=== PATIENT | male | born 1945 | race Caucasian/White ===

== ENCOUNTER 2019-06-20 07:32 | Day surgery (SDC) | payer MEDICARE ==
[2019-06-06 12:05] LABS: BASOPHILS % (AUTO) 0.5 % (0-1); EOSINOPHILS # (AUTO) 0.1 X10'3 (0-0.9); EOSINOPHILS % (AUTO) 1.1 % (0-6); LYMPHOCYTES % (AUTO) 30.9 % (21-51); MEAN CORPUSCULAR HEMOGLOBIN 32.3 PG (27.0-31.0); MEAN CORPUSCULAR HGB CONC 34.1 g/dL (33.0-36.5); MEAN CORPUSCULAR VOLUME 94.8 FL (78-98); MONOCYTES # (AUTO) 0.7 X10'3 (0-0.9); MONOCYTES % (AUTO) 10.8 % (2-12); NEUTROPHILS # (AUTO) 3.6 X10'3 (1.8-7.7); NEUTROPHILS % (AUTO) 56.7 % (42-75); PRE OP HEMATOCRIT 41.8 % (42.0-52.0); PRE OP HEMOGLOBIN 14.2 g/dL (14.0-17.9); PRE OP PLATELET COUNT 193 X10'3 (140-440); RED BLOOD COUNT 4.41 X10'6 (4.70-6.10); RED CELL DISTRIBUTION WIDTH 13.1 % (11.5-14.5)
[2019-06-06 12:18] LABS: BLOOD UREA NITROGEN 12 MG/DL (7-18); BUN/CREATININE RATIO 11.9 (5.4-32.0); CHLORIDE 105 MMOL/L (99-107); CREATININE 1.01 MG/DL (0.60-1.10); PRE OP ANION GAP 8 (8-16); PRE OP GLUCOSE 103 MG/DL (70-104); PRE OP POTASSIUM 3.6 MMOL/L (3.4-5.1); PRE OP SODIUM 139 MMOL/L (135-145); TOTAL CARBON DIOXIDE 25.8 MMOL/L (24-32)
[2019-06-06 12:19] LABS: ALBUMIN 3.6 G/DL (3.4-5.0); ALKALINE PHOSPHATASE 82 IU/L (46-116); CALCIUM 8.7 MG/DL (8.5-10.1); PRE OP ALT 60 U/L (30-65); PRE OP AST 48 U/L (10-37); PRE OP BILIRUB, TOTAL 0.3 MG/DL (0.0-1.0); TOTAL PROTEIN 7.2 G/DL (6.4-8.2); eGFR 72 ML/MIN
[~2019-06-20] VITALS: Ht 172.7 cm; Wt 74.8 kg
[~2019-06-20 07:32] MED LIST: BUPIVAcaine/PF 2.5mg/ml (0.25%) 10ml vial ONE; CLON0.5T4 PO; HYDR25TA4 PO; LEVO88TA7 PO; LISI40TA4 PO; PANT-47 PO; SIMV-45 PO; cefazolin/dext.iso 2gm/100ml 100 ML IV ONE; famotidine 10mg tablet PO ONE; ringers solution, lacted 1,000 ML IV SCH
[2019-06-20 08:00] VITALS: BP 139/92
[2019-06-20] MEDS ORDERED: LIDOcaine 0.5% (5mg/ml) 50ml vial ONE (10:33)
[2019-06-20] MEDS ORDERED: fentaNYL/PF 50MCG/1 ML 2ML syringe ONE ×2 (10:34→10:53)
[2019-06-20] MEDS ORDERED: midazolam 2 mg/2 ml injection ONE ×2 (10:34→11:04)
[2019-06-20] MEDS ORDERED: LIDOcaine 1%/PF 5ML 10 MG/ML VIAL ONE (10:44)
[2019-06-20] MEDS ORDERED: propofol inj 20 ML IV ONE (10:44)
[2019-06-20] MEDS ORDERED: ketamine 50mg/5ml syringe ONE (10:51)
[2019-06-20 11:22] VITALS: BP 159/91
--- NOTE | 2019-06-20 11:22 | NUR ---
Received from OR via [facility] , accompanied by Anesthesiologist STARLA and report given by Anesthesiolgist. PATIENT WITH 20G PIV IN RIGHT HAND RUNNING LR AT 100. DENIES PAIN. LEFT WRIST DRESSING IS CDI. THOR, + CAP REFILL AND SENSATION. DENIES PAIN. Addendum: 06/20/19 at 1134 by Jonathan Barrow RN, RN Amended: Links added.
[2019-06-20 11:32] VITALS: BP 138/91
[2019-06-20 11:42] VITALS: BP 146/79
[2019-06-20 11:52] VITALS: BP 138/78
--- NOTE | 2019-06-20 12:02 | NUR ---
ALL DC CRITERIA HAS BEEN MET. IV TAKEN OUT WITHOUT COMPLICATIONS. ALL INSTRUCTIONS COVERED AND ALL QUESTIONS ANSWERED. DRESSINGS CDI. OUT VIA WHEELCHAIR TO PERSONAL VEHICLE WHERE PATIENT WAS SECURED IN AND DRIVEN HOME BY FAMILY. MD BALDERAS PRESENT TO DISCUSS HOW SURGERY WENT WITH AND PATIENT. Addendum: 06/20/19 at 1205 by Jonathan Barrow RN, RN Amended: Links added.
== END 2019-06-20 12:02 | disposition home or self-care (01) ==
LOC: PAS 07:32
PROVIDERS: ATTEND Orthopaedic Surgery Hand Surgery
DX: S63.592A Other specified sprain of left wrist, initial encounter (principal); M24.832 Other specific joint derangements of left wrist, not elsewhere classified; M19.032 Primary osteoarthritis, left wrist; I10 Essential (primary) hypertension; E03.9 Hypothyroidism, unspecified; Z79.890 Hormone replacement therapy; Z79.899 Other long term (current) drug therapy; Z90.49 Acquired absence of other specified parts of digestive tract; Z98.890 Other specified postprocedural states; X58.XXXA Exposure to other specified factors, initial encounter; Y93.89 Activity, other specified; Y92.89 Other specified places as the place of occurrence of the external cause; Y99.8 Other external cause status
CPT/HCPCS: 29846; 36415; 80053; 82948; 85025; 93005; J2001; J2250; J2704; J3010; J3490; J7120; A4215; A4615; A6449; A7000

== ENCOUNTER 2020-11-12 07:26 | Inpatient (IN) | payer MEDICARE ==
[2020-11-08 12:00] LABS: CLARITY,URINE CLOUDY (Clear); COLOR,URINE YELLOW (Yellow); GLUCOSE, URINE NEGATIVE (Neg); KETONES,URINE NEGATIVE (Neg); LEUKOCYTE ESTERASE ,URINE MODERATE (Neg); NITRITES, URINE NEGATIVE (Neg); OCCULT BLOOD,URINE MODERATE (Neg); PROTEIN,URINE TRACE mg/dl (Neg); UROBILINOGEN,URINE 0.2 E.U/dL (0.2-1.0)
[2020-11-08 12:03] LABS: BASOPHILS % (AUTO) 0.3 % (0-1); EOSINOPHILS # (AUTO) 0.1 X10'3 (0-0.9); EOSINOPHILS % (AUTO) 0.7 % (0-6); LYMPHOCYTES # (AUTO) 1.4 X10'3 (1.1-4.8); LYMPHOCYTES % (AUTO) 18.8 % (21-51); MEAN CORPUSCULAR HEMOGLOBIN 32.2 PG (27.0-31.0); MEAN CORPUSCULAR HGB CONC 33.8 g/dL (33.0-36.5); MEAN CORPUSCULAR VOLUME 95.4 FL (78-98); MONOCYTES # (AUTO) 0.7 X10'3 (0-0.9); MONOCYTES % (AUTO) 8.8 % (2-12); NEUTROPHILS # (AUTO) 5.4 X10'3 (1.8-7.7); NEUTROPHILS % (AUTO) 71.4 % (42-75); PRE OP HEMATOCRIT 42.8 % (42.0-52.0); PRE OP HEMOGLOBIN 14.5 g/dL (14.0-17.9); PRE OP PLATELET COUNT 217 X10'3 (140-440); RED BLOOD COUNT 4.49 X10'6 (4.70-6.10); RED CELL DISTRIBUTION WIDTH 12.8 % (11.5-14.5)
[2020-11-08 12:04] LABS: UA COLLECTION TYPE CLN CATCH MIDSTREAM
[2020-11-08 12:09] LABS: WBC,URINE TNTC /HPF (0-4)
[2020-11-08 12:10] LABS: BACTERIA,URINE 1+ /HPF (Neg); SQUAMOUS EPITHELIAL CELL,UR FEW /LPF (FEW)
[2020-11-08 12:17] LABS: ALBUMIN 3.5 G/DL (3.4-5.0); ALBUMIN/GLOBULIN RATIO 0.9 (1.1-1.5); ALKALINE PHOSPHATASE 86 IU/L (46-116); BLOOD UREA NITROGEN 14 MG/DL (7-18); BUN/CREATININE RATIO 15.7 (5.4-32.0); CALCIUM 8.6 MG/DL (8.5-10.1); CHLORIDE 94 MMOL/L (99-107); CREATININE 0.89 MG/DL (0.60-1.10); PRE OP ALT 25 U/L (30-65); PRE OP ANION GAP 12 (8-16); PRE OP AST 39 U/L (10-37); PRE OP BILIRUB, TOTAL 0.6 MG/DL (0.0-1.0); PRE OP GLUCOSE 96 MG/DL (70-104); PRE OP POTASSIUM 3.7 MMOL/L (3.4-5.1); PRE OP SODIUM 131 MMOL/L (135-145); TOTAL CARBON DIOXIDE 24.8 MMOL/L (24-32); TOTAL PROTEIN 7.3 G/DL (6.4-8.2); eGFR 84 ML/MIN
[2020-11-12] VITALS (18 sets, daily range): BP systolic 112–130; BP diastolic 60–79
[~2020-11-12] VITALS: Ht 170.2 cm; Wt 78.0 kg
[~2020-11-12 07:26] MED LIST changes: -BUPIVAcaine/PF 2.5mg/ml (0.25%) 10ml vial ONE; +CHOL5000 PO; +LISI40TA13 PO; -LISI40TA4 PO; +OXYB10TA30 PO; +ceFAZolin 2gm in dextrose, iso 50 ML IV ONE; -cefazolin/dext.iso 2gm/100ml 100 ML IV ONE; -famotidine 10mg tablet PO ONE; +famotidine 20mg tablet PO ONE; -ringers solution, lacted 1,000 ML IV SCH
[2020-11-12] MEDS: ringers solution, lacted 1,000 ML IV SCH ×2 (08:28→20:37)
[2020-11-12] MEDS ORDERED: fentaNYL /PF 50mcg/ml 5ml ampule ONE (14:52)
[2020-11-12] MEDS ORDERED: midazolam 1 mg/ML 2ml injection ONE (14:52)
[2020-11-12] MEDS ORDERED: BUPIVAcaine/PF 2.5 mg/ml (0.25%) 30ml vial ONE (15:18)
[2020-11-12] MEDS ORDERED: bacitracin 15gm ointment TP ONE (15:18)
[2020-11-12] MEDS ORDERED: acetaminophen 1000 MG/100ml vial IV ONE (15:29)
[2020-11-12] MEDS ORDERED: sevoflurane 250ml liquid IH ONE (15:29)
[2020-11-12] MEDS ORDERED: morphine 4 MG/ML inj SYRINge IV PRN (16:10)
[2020-11-12] MEDS ORDERED: morphine 2 MG/ML inj. syringe IV PRN (16:10)
[2020-11-12] MEDS ORDERED: ondansetron/PF 4mg/2ml inj IV PRN ×2 (16:10→18:25)
[2020-11-12] MEDS ORDERED: HYDROmorphone/PF 0.2 MG/ML SYRINGE IV PRN ×2 (16:10)
[2020-11-12] MEDS ORDERED: ROPIVAcaine 0.2%/PF PUMP/bolus 545 ML POPLITEAL SCH (16:10)
[2020-11-12] MEDS ORDERED: ringers solution, lacted 1,000 ML IV SCH (16:10)
[2020-11-12] MEDS ORDERED: ROPIVAcaine 0.2% (10 MG/5 ML) BOLUS INJECTION POPLITEAL PRN (16:10)
[2020-11-12] MEDS ORDERED: LIDOcaine 1%/PF 5ML 10 MG/ML VIAL ONE (18:14)
[2020-11-12] MEDS ORDERED: propofol inj 20 ML IV ONE (18:14)
[2020-11-12] MEDS ORDERED: ondansetron/PF 4mg/2ml inj ONE (18:15)
[2020-11-12] MEDS ORDERED: dexamethasone sod phosphate 4mg/ml inj. ONE (18:15)
[2020-11-12] MEDS ORDERED: rocuronium 10mg/ml inj IV ONE (18:15)
[2020-11-12] MEDS ORDERED: glycopyrrolate 0.2mg/ml inj ONE (18:15)
[2020-11-12] MEDS ORDERED: neostigmine methylsulfate 1 MG/ML 10ml vial ONE (18:15)
[2020-11-12] MEDS ORDERED: bisacodyl 10mg suppository rectal RC PRN (18:25)
[2020-11-12] MEDS ORDERED: magnesium hydroxide 30ml (MOM) UD suspension PO PRN (18:25)
[2020-11-12] MEDS ORDERED: HYDROcodone/acetaminophen 10/325mg tab PO PRN ×2 (18:25)
[2020-11-12] MEDS ORDERED: diphenhydrAMINE 25mg capsule PO PRN ×2 (18:25)
[2020-11-12] MEDS ORDERED: acetaminophen 325mg tablet PO PRN (18:25)
--- NOTE | 2020-11-12 18:36 | NUR ---
Received from OR via , accompanied by Anesthesiologist DR CHA and report given by Anesthesiolgist. PT PRESENTS WITH PIV 20G RIGHT WRIST. PT LEFT FOOT/ANKLE WITH DRESSING CLEAN AND DRY WITH GOOD CAP REFILL. Addendum: 11/12/20 at 1902 by Krystle Barrow RN, RN Amended: Links added.
[2020-11-12] MEDS ORDERED: clonazePAM 0.5mg tablet PO PRN (19:05)
--- NOTE | 2020-11-12 19:56 | NUR ---
PATIENT HAS MET ALL CRITERIA FOR TRANSFER TO THE ORTHO FLOOR. VSS. DRESSINGS INTACT. BED LOW, CALL LIGHT PRESENT AND 2 RAILS UP. TON DAVISON PRESENT TO ACCEPT CARE OF PATIENT AND REPORT HAS BEEN CALLED. ALL QUESTIONS ANSWERED TO ACCEPTING RN. PT HAS 2 HEARING AIDES, GLASSES AND 2 BAGS TO ROOM [facility]. Addendum: 11/12/20 at 2009 by Krystle Chatman - TON CAMILO Amended: Links added.
--- NOTE | 2020-11-12 19:58 | NUR ---
Patient in recovery room . I have received report from Krystle CAMILO and had the opportunity to ask questions and assume patient care.
[2020-11-12] MEDS ORDERED: sennosides 8.6mg tablet PO SCH (21:00)
[2020-11-12] MEDS: pantoprazole 40mg Tablet.DR PO SCH (21:55)
[2020-11-13] MEDS: ceFAZolin/D5W- 1GM premix 50 ML IV SCH ×2 (00:20→08:00)
[2020-11-13 02:00] VITALS: BP 108/70
[2020-11-13] MEDS ORDERED: potassium Cl 20 mEq SR tablet PO PRN ×2 (02:20)
[2020-11-13] MEDS ORDERED: magnesium Cl slow-release 64mg tablet PO PRN (02:20)
[2020-11-13] MEDS ORDERED: potassium Cl 40MEQ/1/2NS 520ml 520 ML IV PRN ×2 (02:20)
[2020-11-13] MEDS ORDERED: ondansetron/PF 4mg/2ml inj IV PRN (02:20)
[2020-11-13] MEDS ORDERED: magnesium 2GM in 50ml NS 50 ML IV PRN (02:20)
[2020-11-13] MEDS ORDERED: acetaminophen 325mg tablet PO PRN ×2 (02:20)
[2020-11-13] MEDS ORDERED: magnesium hydroxide 30ml (MOM) UD suspension PO PRN (02:20)
[2020-11-13] MEDS ORDERED: morphine 2 MG/ML inj. syringe IV PRN ×2 (02:20)
[2020-11-13] MEDS ORDERED: HYDROcodone/acetaminophen 10/325mg tab PO PRN ×2 (02:20→02:45)
[2020-11-13] MEDS ORDERED: magnesium 4gm in 100ml NS 100 ML IV PRN (02:20)
[2020-11-13] MEDS ORDERED: HYDROcodone/acetaminophen 5mg/325mg tablet PO PRN (02:20)
[2020-11-13] MEDS ORDERED: mag hydrox/Alum hydrox/simeth 30ml oral suspension PO PRN (02:20)
[2020-11-13] MEDS ORDERED: LORazepam 1 MG tablet PO PRN (02:50)
[2020-11-13] MEDS ORDERED: LORazepam 2 mg/ml vial IV PRN (02:50)
--- NOTE | 2020-11-13 06:24 | NUR ---
Problems reprioritized. Patient report given, questions answered & plan of care reviewed with Elizabeth CAMILO.
--- NOTE | 2020-11-13 06:58 | NUR ---
Patient in room ORTHO 4014. I have received report from Barbara CAMILO and had the opportunity to ask questions and assume patient care.
[2020-11-13 07:00] VITALS: BP 91/63
[2020-11-13] MEDS ORDERED: levoTHYROXINE 75mcg tablet PO SCH (07:00)
[2020-11-13 07:06] LABS: BASOPHILS % (AUTO) 0.1 % (0-1); EOSINOPHILS % (AUTO) 0 % (0-6); HEMOGLOBIN 12.9 g/dl (14.0-17.9); LYMPHOCYTES # (AUTO) 0.8 X10'3 (1.1-4.8); LYMPHOCYTES % (AUTO) 7.5 % (21-51); MEAN CORPUSCULAR HEMOGLOBIN 32.7 PG (27.0-31.0); MEAN CORPUSCULAR VOLUME 96.3 FL (78-98); MEAN PLATELET VOLUME 8.4 FL (7.4-10.4); MONOCYTES # (AUTO) 0.8 X10'3 (0-0.9); MONOCYTES % (AUTO) 7.8 % (2-12); NEUTROPHILS # (AUTO) 9.2 X10'3 (1.8-7.7); NEUTROPHILS % (AUTO) 84.6 % (42-75); PLATELET COUNT 221 X10'3 (140-440); RED BLOOD COUNT 3.95 X10'6 (4.70-6.10); RED CELL DISTRIBUTION WIDTH 12.3 % (11.5-14.5); WHITE BLOOD COUNT 10.9 X10'3 (4.5-11.0)
[2020-11-13 07:18] LABS: ANION GAP 6 (8-16); CHLORIDE 100 MMOL/L (99-107); SODIUM 134 MMOL/L (135-145); TOTAL CARBON DIOXIDE 27.6 MMOL/L (24-32)
[2020-11-13] MEDS ORDERED: oxybutynin 5mg tablet PO SCH (08:00)
[2020-11-13] MEDS ORDERED: lisinopril 20mg tablet PO SCH (08:00)
[2020-11-13] MEDS ORDERED: heparin, porcine 5000 units/ml vial SQ SCH (08:00)
[2020-11-13] MEDS ORDERED: HYDROchlorothiazide 25mg tablet PO SCH (08:00)
[2020-11-13] MEDS ORDERED: atorvastatin 10mg tablet PO SCH (08:00)
[2020-11-13] MEDS ORDERED: K and/or MAG REPLACEMENT MC SCH (08:00)
[2020-11-13 08:02] VITALS: BP_SYST 138
[2020-11-13] MEDS: pantoprazole 40mg Tablet.DR PO SCH (08:02)
[2020-11-13] MEDS ORDERED: aspirin 325mg tablet PO SCH (08:30)
[2020-11-13] MEDS ORDERED: ASPI-1 PO (13:37)
--- NOTE | 2020-11-13 14:20 | NUR ---
Patient OK to discharge per MD orders. All discharge instructions were gone over and educated on. All personal items collected and sent with patient. Patient was educated on medication and On Q pump. was shown how to DC and materials were collected and sent with patient.
[2020-11-13] MEDS ORDERED: temazepam 15mg capsule PO PRN (21:00)
[2020-11-15] MEDS ORDERED: ergocalciferol (vit D2) capsule 50,000 UNITS (1,250mcg) CAPSULE PO SCH (08:00)
--- NOTE | 2020-11-17 12:23 | NUR ---
CASE MANAGEMENT DISCHARGE FOLLOW UP: Spoke with pt via telephone. Reports that everything is fine, having a rough time with non-weightbearing status, mobility confined to wheelchair as he is having difficulty with knee scooter due to splint; denies CP, SOB, s/sx infection. Pt states does have significant swelling in foot this morning, more so than after surgery (POD5), states painful, has been keeping foot elevated. Advised that he may want to notify surgeon of new swelling, it may be normal but surgeon may want to eval pt sooner, he states that he will do so. Verbalizes understanding of s/sx requiring further evaluation/emergent assistance. Pt states pain level in foot is tolerable with [place], taking 2-3 tabs/day. Upon inquiry, pt states only took aspirin once, wants to know if he was supposed to take more. Advised that he needs to take 325mg aspirin daily to prevent blood clots, pt to resume aspirin today. Verbalizes compliance with MD discharge instructions. Verbalizes understanding of the importance in making/keeping follow-up appointments, will see surgeon next Sunday (11/23/20). Pt does express 2x that he still doesn't really know what happened during surgery as he never spoke to surgeon after surgery, states he'll find out next week. States no further questions/concerns at this time.
== END 2020-11-13 14:30 | disposition home health service (06) | DRG 505 ==
LOC: PAS 07:26 → ORTHO 4S 18:22
PROVIDERS: ADMIT Podiatrist Foot & Ankle Surgery; ATTEND Internal Medicine
PROC: 0SGJ07Z Fusion of Left Tarsal Joint with Autologous Tissue Substitute, Open Approach (ICD-10-PCS; 2020-11-12)
PROC: 0SGJ07Z Fusion of Left Tarsal Joint with Autologous Tissue Substitute, Open Approach (ICD-10-PCS; 2020-11-12)
PROC: 0L8P0ZZ Division of Left Lower Leg Tendon, Open Approach (ICD-10-PCS; 2020-11-12)
PROC: 3E0T3BZ Introduction of Anesthetic Agent into Peripheral Nerves and Plexi, Percutaneous Approach (ICD-10-PCS; 2020-11-12)
PROC: 0SGJ07Z Fusion of Left Tarsal Joint with Autologous Tissue Substitute, Open Approach (ICD-10-PCS; principal; 2020-11-12 15:29)
DX: M21.42 Flat foot [pes planus] (acquired), left foot (principal); E03.9 Hypothyroidism, unspecified; I10 Essential (primary) hypertension; E66.01 Morbid (severe) obesity due to excess calories; K21.9 Gastro-esophageal reflux disease without esophagitis; Z87.440 Personal history of urinary (tract) infections; Z68.26 Body mass index [BMI] 26.0-26.9, adult; Z72.89 Other problems related to lifestyle
CPT/HCPCS: 36415; 73630; 76000; 80051; 80053; 81001; 82948; 85025; 87077; 87081; 87088; 87186; 93005; 97161; 97530; A4618; A6223; A6253; A6449; A7000; C1713; G0378; J0131; J0690; J1100; J1644; J2250; J2405; J2704; J2710; J2795; J3010; J3490; J7120

== ENCOUNTER → 2021-07-01 | Day surgery (SDC) | payer MEDICARE ==
[2021-06-23 14:34] LABS: BASOPHILS % (AUTO) 0.5 % (0-1); EOSINOPHILS # (AUTO) 0.2 X10'3 (0-0.9); EOSINOPHILS % (AUTO) 2.2 % (0-6); LYMPHOCYTES # (AUTO) 2.2 X10'3 (1.1-4.8); LYMPHOCYTES % (AUTO) 28.7 % (21-51); MEAN CORPUSCULAR HEMOGLOBIN 32.2 PG (27.0-31.0); MEAN CORPUSCULAR HGB CONC 33.5 g/dL (33.0-36.5); MEAN CORPUSCULAR VOLUME 96.2 FL (78-98); MEAN PLATELET VOLUME 7.5 FL (7.4-10.4); MONOCYTES # (AUTO) 0.7 X10'3 (0-0.9); MONOCYTES % (AUTO) 9.9 % (2-12); NEUTROPHILS # (AUTO) 4.5 X10'3 (1.8-7.7); NEUTROPHILS % (AUTO) 58.7 % (42-75); PRE OP HEMATOCRIT 43.9 % (42.0-52.0); PRE OP HEMOGLOBIN 14.7 g/dL (14.0-17.9); PRE OP PLATELET COUNT 237 X10'3 (140-440); RED BLOOD COUNT 4.56 X10'6 (4.70-6.10); RED CELL DISTRIBUTION WIDTH 12.9 % (11.5-14.5)
[2021-06-23 14:41] LABS: CLARITY,URINE CLEAR (Clear); COLOR,URINE YELLOW (Yellow); GLUCOSE, URINE NEGATIVE (Neg); KETONES,URINE NEGATIVE (Neg); LEUKOCYTE ESTERASE ,URINE NEGATIVE (Neg); NITRITES, URINE NEGATIVE (Neg); OCCULT BLOOD,URINE NEGATIVE (Neg); PROTEIN,URINE NEGATIVE (Neg); UROBILINOGEN,URINE 0.2 E.U/dL (0.2-1.0)
[2021-06-23 14:46] LABS: UA COLLECTION TYPE CLN CATCH MIDSTREAM
[2021-06-23 14:53] LABS: ALBUMIN 3.6 G/DL (3.4-5.0); ALKALINE PHOSPHATASE 89 IU/L (46-116); BLOOD UREA NITROGEN 10 MG/DL (7-18); BUN/CREATININE RATIO 9.9 (5.4-32.0); CALCIUM 8.9 MG/DL (8.5-10.1); CHLORIDE 99 MMOL/L (99-107); CREATININE 1.01 MG/DL (0.60-1.10); PRE OP ALT 35 U/L (30-65); PRE OP ANION GAP 9 (8-16); PRE OP AST 40 U/L (10-37); PRE OP BILIRUB, TOTAL 0.4 MG/DL (0.0-1.0); PRE OP GLUCOSE 98 MG/DL (70-104); PRE OP POTASSIUM 3.7 MMOL/L (3.4-5.1); PRE OP SODIUM 134 MMOL/L (135-145); TOTAL CARBON DIOXIDE 26.2 MMOL/L (24-32); TOTAL PROTEIN 7.2 G/DL (6.4-8.2); eGFR 72 ML/MIN
[~2021-07-01] VITALS: Ht 172.7 cm; Wt 78.0 kg
[~2021-07-01] MED LIST changes: -CHOL5000 PO; -CLON0.5T4 PO; -HYDR25TA4 PO; +PARO30TA4 PO; +TROS60CA3 PO; -ceFAZolin 2gm in dextrose, iso 50 ML IV ONE; +cefazolin/dext.iso 2gm/50ml IV ONE; +ringers solution, lacted 1,000 ML IV SCH; +vancomycin 1,500 MG in NS 300ml IV soln IV ONE
--- NOTE | 2021-07-01 11:45 | NUR ---
PT. SURGERY CANCELLED BY DUE TO UNAVAILABLE INSTRUMENTATION NECESSARY FOR THIS PARTICULAR SURGERY. MD INFORMED PT. AND SPOUSE. PT. UNDERSTANDS. WILL BE RESCHEDULED WHEN PROPER INSTRUMENTS ARRIVE. IV RICHA'John . Addendum: 07/01/21 at 1148 by Suzanna Christianson RN Amended: Links added.
== END | disposition home or self-care (01) ==
LOC: PAS 10:16
PROVIDERS: ATTEND Podiatrist Foot & Ankle Surgery
DX: M25.472 Effusion, left ankle (principal); Z53.8 Procedure and treatment not carried out for other reasons; M79.672 Pain in left foot; M25.572 Pain in left ankle and joints of left foot; M21.42 Flat foot [pes planus] (acquired), left foot; M19.072 Primary osteoarthritis, left ankle and foot; Z20.822 Contact with and (suspected) exposure to COVID-19; Z79.899 Other long term (current) drug therapy
CPT/HCPCS: 36415; 80053; 81003; 82948; 85025; 87081; 93005; J0690; J3370; J7040; J7120; U0003; U0005

== ENCOUNTER 2021-08-19 05:27 | Inpatient (IN) | payer MEDICARE ==
[2021-08-15 11:09] LABS: BASOPHILS % (AUTO) 0.6 % (0-1); EOSINOPHILS # (AUTO) 0.2 X10'3 (0-0.9); EOSINOPHILS % (AUTO) 2.5 % (0-6); LYMPHOCYTES # (AUTO) 1.7 X10'3 (1.1-4.8); LYMPHOCYTES % (AUTO) 23.2 % (21-51); MEAN CORPUSCULAR HGB CONC 34.8 g/dL (33.0-36.5); MEAN CORPUSCULAR VOLUME 91.8 FL (78-98); MEAN PLATELET VOLUME 7.4 FL (7.4-10.4); MONOCYTES # (AUTO) 0.7 X10'3 (0-0.9); NEUTROPHILS # (AUTO) 4.8 X10'3 (1.8-7.7); NEUTROPHILS % (AUTO) 63.7 % (42-75); PRE OP PLATELET COUNT 278 X10'3 (140-440); RED BLOOD COUNT 4.68 X10'6 (4.70-6.10); RED CELL DISTRIBUTION WIDTH 12.6 % (11.5-14.5)
[2021-08-15 11:17] LABS: CLARITY,URINE CLEAR (Clear); COLOR,URINE YELLOW (Yellow); GLUCOSE, URINE NEGATIVE (Neg); KETONES,URINE NEGATIVE (Neg); LEUKOCYTE ESTERASE ,URINE NEGATIVE (Neg); NITRITES, URINE NEGATIVE (Neg); OCCULT BLOOD,URINE NEGATIVE (Neg); PROTEIN,URINE NEGATIVE (Neg); UROBILINOGEN,URINE 0.2 E.U/dL (0.2-1.0)
[2021-08-15 11:31] LABS: UA COLLECTION TYPE CLN CATCH MIDSTREAM
[2021-08-15 11:57] LABS: ALBUMIN 3.8 G/DL (3.4-5.0); ALBUMIN/GLOBULIN RATIO 1.2 (1.1-1.5); ALKALINE PHOSPHATASE 92 IU/L (46-116); BLOOD UREA NITROGEN 9 MG/DL (7-18); BUN/CREATININE RATIO 8.1 (5.4-32.0); CALCIUM 9.1 MG/DL (8.5-10.1); CHLORIDE 98 MMOL/L (99-107); CREATININE 1.11 MG/DL (0.60-1.10); PRE OP ALT 57 U/L (30-65); PRE OP ANION GAP 14 (8-16); PRE OP AST 51 U/L (10-37); PRE OP BILIRUB, TOTAL 0.5 MG/DL (0.0-1.0); PRE OP GLUCOSE 101 MG/DL (70-104); PRE OP POTASSIUM 4.2 MMOL/L (3.4-5.1); PRE OP SODIUM 136 MMOL/L (135-145); TOTAL CARBON DIOXIDE 24.4 MMOL/L (24-32); TOTAL PROTEIN 7.1 G/DL (6.4-8.2); eGFR 65 ML/MIN
[~2021-08-19] VITALS: Ht 172.7 cm; Wt 83.0 kg
[2021-08-19] VITALS (25 sets, daily range): BP systolic 99–139; BP diastolic 66–99
[~2021-08-19 05:27] MED LIST changes: +HYDR25TA4 PO; +LEVO75TA7 PO; -LEVO88TA7 PO; +MONT-40 PO; -OXYB10TA30 PO; -cefazolin/dext.iso 2gm/50ml IV ONE; -famotidine 20mg tablet PO ONE; -ringers solution, lacted 1,000 ML IV SCH; -vancomycin 1,500 MG in NS 300ml IV soln IV ONE
[2021-08-19] MEDS ORDERED: vancomycin 1,500 MG in NS 300ml IV soln IV ONE (05:30)
[2021-08-19] MEDS ORDERED: cefazolin/dext.iso 2gm/50ml IV ONE (05:30)
[2021-08-19] MEDS ORDERED: famotidine 20mg tablet PO ONE (05:30)
[2021-08-19] MEDS: ringers solution, lacted 1,000 ML IV SCH ×2 (06:11→14:21)
[2021-08-19] MEDS ORDERED: bacitracin 15gm ointment TP ONE (06:46)
[2021-08-19] MEDS ORDERED: fentaNYL /PF 50mcg/ml 5ml ampule ONE (07:42)
[2021-08-19] MEDS ORDERED: midazolam 1 mg/ML 2ml injection ONE (07:42)
[2021-08-19] MEDS ORDERED: cloNIDine hcl/PF 100mcg/ml inj ONE (07:49)
[2021-08-19] MEDS ORDERED: acetaminophen 1000 MG/100ml vial IV ONE (08:00)
[2021-08-19] MEDS ORDERED: sevoflurane 250ml liquid IH ONE (08:00)
[2021-08-19] MEDS ORDERED: ondansetron/PF 4mg/2ml inj IV PRN ×2 (09:50→10:20)
[2021-08-19] MEDS ORDERED: HYDROmorphone/PF 0.2 MG/ML SYRINGE IV PRN ×2 (09:50)
[2021-08-19] MEDS ORDERED: ROPIVAcaine 0.2% (10 MG/5 ML) BOLUS INJECTION POPLITEAL PRN (09:50)
[2021-08-19] MEDS ORDERED: morphine 2 MG/ML inj. syringe IV PRN (09:50)
[2021-08-19] MEDS ORDERED: ringers solution, lacted 1,000 ML IV SCH (09:50)
[2021-08-19] MEDS ORDERED: ROPIVAcaine 0.2%/PF PUMP/bolus 545 ML POPLITEAL SCH (09:50)
[2021-08-19] MEDS ORDERED: LIDOcaine 1%/PF 5ML 10 MG/ML VIAL ONE (10:20)
[2021-08-19] MEDS ORDERED: magnesium hydroxide 30ml (MOM) UD suspension PO PRN (10:20)
[2021-08-19] MEDS ORDERED: potassium Cl 20 mEq SR tablet PO PRN ×2 (10:20)
[2021-08-19] MEDS ORDERED: magnesium Cl slow-release 64mg tablet PO PRN (10:20)
[2021-08-19] MEDS ORDERED: propofol inj 20 ML IV ONE (10:20)
[2021-08-19] MEDS ORDERED: rocuronium 10mg/ml inj IV ONE (10:20)
[2021-08-19] MEDS ORDERED: magnesium 2GM in 50ml NS 50 ML IV PRN (10:20)
[2021-08-19] MEDS ORDERED: ondansetron/PF 4mg/2ml inj ONE (10:20)
[2021-08-19] MEDS ORDERED: mag hydrox/Alum hydrox/simeth 30ml oral suspension PO PRN (10:20)
[2021-08-19] MEDS ORDERED: potassium CL 10mEq/100ml bag 100 ML IV PRN (10:20)
[2021-08-19] MEDS ORDERED: magnesium 4gm in 100ml NS 100 ML IV PRN (10:20)
[2021-08-19] MEDS ORDERED: dexamethasone sod phosphate 4mg/ml inj. ONE (10:20)
[2021-08-19] MEDS ORDERED: ROPIVAcaine 0.5% (5mg/ml) 30ml vial ONE (10:20)
[2021-08-19] MEDS ORDERED: acetaminophen 325mg tablet PO PRN (10:20)
[2021-08-19] MEDS ORDERED: neostigmine methylsulfate 1 MG/ML 10ml vial ONE (10:21)
[2021-08-19] MEDS ORDERED: glycopyrrolate 0.2mg/ml inj ONE (10:21)
--- NOTE | 2021-08-19 10:25 | NUR ---
Received from OR viA BED , accompanied by Anesthesiologist DR CHA and report given by Anesthesiolgist AND COST ESTIMATING MANAGER. PATIENT VERY DROWSY. DENIES PAIN. LEFT LOWER LEG WITH JOVI WRAP COVERING SPLINT AND DRESSING FROM LOWER KNEE TO TOES. TOES PWD. FURNACE INSTALLER HELPER 1-2 SECONDS. ABDUCTOR CANAL BLOCK CATH INTACT. 18 GAUGE PIV RIGHT WRIST. Addendum: 08/19/21 at 1143 by Criss Godinez RN Amended: Links added. Addendum: 08/19/21 at 1356 by Criss Godinez RN ERROR IN CHARTING OF BLOCK....POPLITEAL BLOCK WITH CATHETER INTACT.
--- NOTE | 2021-08-19 12:45 | NUR ---
PATIENT IS COMFORTABLE, VSS.Q PUMP ATTACHED AND PATIENT EDUCATED, GAVE REPORT TO LAUERL CAMILO COVERING RN AT BEDSIDE TO RECEIVE PATIENT, SIDE RAILS UP, BED LOWERED AND BED LOCKED. GAVE PATIENT CALL LIGHT. POST OP VBS STARTED. SENT PATIENTS GALSSES X 2 AND ONE BAG WITH PATIENT. Addendum: 08/19/21 at 1321 by Criss Godinez RN Amended: Links added.
--- NOTE | 2021-08-19 13:26 | NUR ---
Received patient to room 348B. Patient is A&O in no apparent acute distress. Has 4/10 pain to left leg but tolerable at this time with ONQ ball @ 4ml/hr. Cast to left leg CDI, left toes good cap refill, warm. Oriented patient to room and call light. Call light placed within patient's reach, bed is low and locked and spouse is at bedside.
--- NOTE | 2021-08-19 18:17 | NUR ---
Problems reprioritized. Patient report given, questions answered & plan of care reviewed with TON Hanley.
--- NOTE | 2021-08-19 18:30 | NUR ---
Patient in room [facility]. I have received report from LAUREL CAMILO and had the opportunity to ask questions and assume patient care.
[2021-08-19] MEDS: docusate sod 100mg capsule PO SCH (19:23)
[2021-08-19] MEDS: oxybutynin 5mg tablet PO SCH (19:24)
[2021-08-19] MEDS: pantoprazole 40mg Tablet.DR PO SCH (19:24)
[2021-08-19] MEDS: K and/or MAG REPLACEMENT MC SCH (20:00)
[2021-08-20] VITALS: BP 103/60
[2021-08-20] MEDS: HYDROcodone/acetaminophen 10/325mg tab PO PRN ×2 (05:59→11:53)
[2021-08-20 06:30] VITALS: BP 116/67
--- NOTE | 2021-08-20 06:30 | NUR ---
Problems reprioritized. Patient report given, questions answered & plan of care reviewed with JOSE ANTONIO RN.
--- NOTE | 2021-08-20 06:40 | NUR ---
Patient in room [facility] 348. I have received report from Tammy Munoz RN and had the opportunity to ask questions and assume patient care.
[2021-08-20 07:11] LABS: MAGNESIUM 1.6 MG/DL (1.5-2.4); POTASSIUM 3.6 MMOL/L (3.5-5.1)
[2021-08-20] MEDS ORDERED: levoTHYROXINE 75mcg tablet PO SCH (08:00)
[2021-08-20] MEDS ORDERED: lisinopril 20mg tablet PO SCH (08:00)
[2021-08-20] MEDS ORDERED: HYDROchlorothiazide 25mg tablet PO SCH (08:00)
[2021-08-20] MEDS: K and/or MAG REPLACEMENT MC SCH (08:00)
[2021-08-20] MEDS ORDERED: montelukast 10mg tablet PO SCH (08:00)
[2021-08-20] MEDS ORDERED: PARoxetine 10mg tablet PO SCH (08:00)
[2021-08-20] MEDS ORDERED: atorvastatin 20mg tablet PO SCH (08:00)
[2021-08-20] MEDS: pantoprazole 40mg Tablet.DR PO SCH (09:10)
[2021-08-20] MEDS: oxybutynin 5mg tablet PO SCH (09:10)
[2021-08-20] MEDS: docusate sod 100mg capsule PO SCH (09:11)
[2021-08-20] MEDS ORDERED: diphenhydrAMINE 25mg capsule PO ONE (09:30)
[2021-08-20 11:00] VITALS: BP 121/71
--- NOTE | 2021-08-20 12:50 | NUR ---
DC inst provided to pt. IV DC'd, tip intact. All belongings sent w/pt. WC to vehicle.
== END 2021-08-20 12:47 | disposition home or self-care (01) | DRG 469 ==
LOC: PAS IN 05:27 → EDSTATUS 08:45 → SUR 3N 13:12
PROVIDERS: ADMIT Podiatrist Foot & Ankle Surgery; ATTEND Podiatrist Foot & Ankle Surgery
PROC: 0QPM04Z Removal of Internal Fixation Device from Left Tarsal, Open Approach (ICD-10-PCS; 2021-08-19)
PROC: 0SRG0J9 Replacement of Left Ankle Joint with Synthetic Substitute, Cemented, Open Approach (ICD-10-PCS; principal; 2021-08-19 08:00)
DX: M19.072 Primary osteoarthritis, left ankle and foot (principal); T84.84XA Pain due to internal orthopedic prosthetic devices, implants and grafts, initial encounter; Y83.1 Surgical operation with implant of artificial internal device as the cause of abnormal reaction of the patient, or of later complication, without mention of misadventure at the time of the procedure; Y92.89 Other specified places as the place of occurrence of the external cause; Z20.822 Contact with and (suspected) exposure to COVID-19
CPT/HCPCS: 1776; 36415; 73600; 76000; 80053; 81003; 82948; 83735; 84132; 85025; 87081; 97161; 97530; A4618; A6223; A6253; A6449; A7000; C1713; C1776; G0378; J0131; J0690; J0735; J1100; J2250; J2405; J2704; J2710; J2795; J3010; J3370; J3490; J7040; J7120; Q0163; U0003; U0005